=== PATIENT | male | born 1980 | race Caucasian/White ===

== ENCOUNTER 2018-11-07 11:07 | Emergency (ER) | payer SELFPAY ==
[~2018-11-07] VITALS: Ht 172.7 cm; Wt 138.1 kg
[~2018-11-07 11:07] MED LIST: COLACE100 MG PO; IBUPROFEN400 MG PO; NORCO1 TA2 PO
[2018-11-07 11:13] VITALS: Ht 172.7 cm; Wt 138.1 kg
[2018-11-07 13:38] VITALS: BP 135/51
== END 2018-11-07 13:38 | disposition home or self-care (01) ==
LOC: ED 11:07
DX: H81.10 Benign paroxysmal vertigo, unspecified ear (principal); K21.9 Gastro-esophageal reflux disease without esophagitis; Z90.49 Acquired absence of other specified parts of digestive tract; Z98.890 Other specified postprocedural states
CPT/HCPCS: J8597